=== PATIENT | female | born 1995 | race Caucasian/White ===

== ENCOUNTER 2020-05-08 14:57 | Day surgery (SDC) | payer OTHER ==
[2020-05-08] MEDS ORDERED: hydrALAZINE 20 MG/ML VIAL SLOW IVP PRN (15:19)
[2020-05-08 16:28] LABS: Amnisure Test No Membranes Rupture (No Rupture)
== END 2020-05-08 18:24 | disposition home or self-care (01) ==
LOC: CSHLD/OP 14:57
PROVIDERS: ATTEND Family Medicine
DX: O99.891 Other specified diseases and conditions complicating pregnancy (principal); N89.8 Other specified noninflammatory disorders of vagina; Z3A.28 28 weeks gestation of pregnancy
CPT/HCPCS: 84112; 99283

== ENCOUNTER 2020-07-14 02:09 | Day surgery (SDC) | payer OTHER ==
[2020-07-14 03:05] VITALS: BMI 29.0
== END 2020-07-14 08:03 | disposition home or self-care (01) ==
LOC: CSHLD/OP 02:09
PROVIDERS: ATTEND Family Medicine
DX: O47.1 False labor at or after 37 completed weeks of gestation (principal); O99.891 Other specified diseases and conditions complicating pregnancy; R10.9 Unspecified abdominal pain; Z3A.38 38 weeks gestation of pregnancy
CPT/HCPCS: 99282